=== PATIENT | male | born 1990 | race Caucasian/White ===

== ENCOUNTER 2016-09-11 14:22 | Emergency (ER) | payer OTHER ==
[~2016-09-11] VITALS: Ht 180.3 cm; Wt 93.4 kg
[~2016-09-11 14:22] MED LIST: CARAFATE1 GM PO; OMEPRAZOLE40 M1 PO
[2016-09-11 14:59] LABS: HEMATOCRIT 45.1 % (38.0-50.0); MCH 30.7 PG (29.0-34.0); MCHC 35.5 G/DL (30.0-36.0); MCV 86.6 FL (86-99); MEAN PLAT.VOLUME 8.6 uM^3 (9.0-12.4); PLATELET COUNT 328 K/uL (156-360); RBC DIS.WIDTH-CV 11.9 % (11.8-14.6); RBC DIS.WIDTH-SD 37.9 % (39-53); RED BLOOD COUNT 5.21 M/uL (4.00-5.50); WHITE BLOOD COUNT 10.8 K/uL (4.1-10.2)
[2016-09-11 15:08] LABS: CHLORIDE 106 mEq/L (99-109); SODIUM 140 mEq/L (136-147)
[2016-09-11 15:10] LABS: GLUCOSE 93 mg/dL (70-99)
[2016-09-11 15:12] LABS: ANION GAP 11 MEQ/L (2-14)
[2016-09-11 15:14] LABS: GFR ESTIMATE (CALCULATED) > 59 mL/min/
[2016-09-11 15:15] LABS: UREA NITROGEN (BUN) 9 mg/dL (9-23)
[2016-09-11] MEDS ORDERED: PRILOSEC20 MG PO (16:57)
[2016-09-11 17:19] VITALS: BP 107/68
== END 2016-09-11 17:21 | disposition left against medical advice (07) ==
LOC: EME 14:22
DX: K92.0 Hematemesis (principal); F17.200 Nicotine dependence, unspecified, uncomplicated
CPT/HCPCS: 80048; 85027; 86900; 86901; 93005; 99281; 99283

== ENCOUNTER 2016-09-11 19:28 | Emergency (ER) | payer OTHER ==
[~2016-09-11] VITALS: Ht 180.3 cm; Wt 93.1 kg
[~2016-09-11 19:28] MED LIST changes: +PRILOSEC20 MG PO
[2016-09-11 23:06] VITALS: BP 132/84
== END 2016-09-11 23:20 | disposition home or self-care (01) ==
LOC: EME 19:28
DX: R04.2 Hemoptysis (principal); K92.0 Hematemesis; F17.200 Nicotine dependence, unspecified, uncomplicated
CPT/HCPCS: 71020; 99281; 99284